=== PATIENT | male | born 1980 | race Caucasian/White ===

== ENCOUNTER 2018-02-10 16:02 | Emergency (ER) | payer OTHER ==
[~2018-02-10] VITALS: Ht 182.9 cm; Wt 86.2 kg
[2018-02-10] MEDS ORDERED: PREG75 PO ×2 (17:24→17:52)
[2018-02-10] MEDS ORDERED: OXYC1TAB11 (17:25)
[2018-02-10] MEDS ORDERED: CEPH500 PO (17:52)
[2018-02-10] MEDS ORDERED: Norco 5-325 Ta1 EACH PO (17:52)
== END 2018-02-10 18:00 | disposition home or self-care (01) ==
LOC: ER 16:02
DX: T81.4XXA Infection following a procedure, initial encounter (principal); Z76.0 Encounter for issue of repeat prescription; Z88.8 Allergy status to other drugs, medicaments and biological substances; Z79.899 Other long term (current) drug therapy
CPT/HCPCS: 99283

== ENCOUNTER 2018-09-25 14:33 | Emergency (ER) | payer OTHER ==
[~2018-09-25] VITALS: Ht 182.9 cm; Wt 86.2 kg
[~2018-09-25 14:33] MED LIST: CEPH500 PO; Norco 5-325 Ta1 EACH PO; OXYC1TAB11; PREG75 PO
[2018-09-25] MEDS ORDERED: PREG25 PO (15:50)
[2018-09-25] MEDS ORDERED: NAPR550 PO (15:55)
[2018-09-25] MEDS ORDERED: Voltaren100 GM TOP (15:55)
[2018-09-25] MEDS ORDERED: Ultram50 MG PO (15:55)
[2018-09-25] MEDS ORDERED: CEPH500 PO (17:44)
== END 2018-09-25 16:07 | disposition home or self-care (01) ==
LOC: ER 14:33
DX: L03.114 Cellulitis of left upper limb (principal); Z88.8 Allergy status to other drugs, medicaments and biological substances; Z79.899 Other long term (current) drug therapy
CPT/HCPCS: 76882

== ENCOUNTER 2019-08-22 19:10 | Inpatient (IN) | payer OTHER ==
[~2019-08-22] VITALS: Ht 182.9 cm; Wt 92.8 kg
[~2019-08-22 19:10] MED LIST changes: +NAPR550 PO; +PREG25 PO; +Ultram50 MG PO; +Voltaren100 GM TOP
[2019-08-22 19:51] LABS: BASOPHILS ABSOLUTE AUTO 0.03 K/mm3 (0.00-0.23); BASOPHILS PERCENT AUTO 0 % (0-2); EOSINOPHILS ABSOLUTE AUTO 0.01 K/mm3 (0.00-0.68); EOSINOPHILS PERCENT AUTO 0 % (0-6); Hemoglobin 15.5 g/dL (13.5-17.5); IMMATURE GRAN ABSOLUTE AUTO 0.09 K/mm3 (0.00-0.10); IMMATURE GRAN PERCENT AUTO 1 % (0-1); LYMPHOCYTES ABSOLUTE AUTO 1.11 K/mm3 (0.84-5.20); LYMPHOCYTES PERCENT AUTO 6 % (21-46); MONOCYTES ABSOLUTE AUTO 0.95 K/mm3 (0.16-1.47); MONOCYTES PERCENT AUTO 5 % (4-13); Mean Corpuscular HGB 28.3 pg (26.0-34.0); Mean Corpuscular HGB Conc 33.7 g/dL (31.5-36.5); Mean Corpuscular Volume 84 fL (80-100); Mean Platelet Volume 10.4 fL (9.1-12.4); NEUTROPHILS ABSOLUTE AUTO 17.67 K/mm3 (1.96-9.15); NEUTROPHILS PERCENT AUTO 89 % (41-73); Platelet Count 306 K/mm3 (150-400); RDW Coefficient Variation 12.4 % (11.7-14.2); RDW Standard Deviation 37.7 fL (35.1-46.3); Red Blood Cell Count 5.47 M/mm3 (4.30-5.90); White Blood Cell Count 19.86 K/mm3 (4.00-11.30)
[2019-08-22 20:16] LABS: Alanine Aminotransfer (ALT/SGP 26 U/L (12-78); Albumin/Globulin Ratio 1.2 (0.8-1.8); Alk Phos 83 U/L (50-136); Anion Gap 6 mmol/L (6-16); Aspartate Aminotrans (AST/SGOT 15 U/L (12-37); Blood Urea Nitrogen 18 mg/dL (8-24); Bun/Creatinine Ratio 24.7 (12.0-20.0); CO2, Blood 25 mmol/L (21-32); Calcium, Blood 9.1 mg/dL (8.5-10.1); Chloride, Blood 105 mmol/L (98-108); Creatinine, Blood 0.73 mg/dL (0.60-1.20); Globulin, Blood 3.3 g/dL (2.2-4.0); Glomerular Filtration Rate >60 (60-); Glucose, Blood 116 mg/dL (70-99); Potassium, Blood 3.9 mmol/L (3.5-5.5); Sodium, Blood 136 mmol/L (136-145); Total Protein, Blood 7.3 g/dL (6.4-8.2)
[2019-08-22 21:21] LABS: Source, Urine Clean Catch
[2019-08-22 21:23] LABS: Blood, Urine 5+ (Neg); Glucose Qualitative, Urine Neg (Neg); Ketones, Urine 1+ (Neg); Leukocyte Esterase, Urine 1+ (Neg); Nitrite, Urine Neg (Neg); Protein, Urine 2+ (Neg); Urobilinogen, Urine 1+ (Normal)
[2019-08-22 21:28] LABS: Appearance, Urine Hazy (Clear); Bilirubin, Urine 1+ (Neg); Color, Urine Yellow (P-Yellow)
[2019-08-22 21:30] LABS: Red Blood Cells, Urine 25-50 /hpf (0-2); Squamous Epithelial Cells Rare /hpf (Few); White Blood Cells, Urine 0-2 /hpf (0-5)
[2019-08-22 21:31] LABS: Bacteria Rare /hpf
--- NOTE | 2019-08-23 03:59 | NUR ---
SHIFT SUMMARY PT NEW ADMISSION THIS NOC SHIFT. [id number]. NPO. DISCOMFORT CONTROLLED WITH 1MG IV DILAUDID X2 SINCE ADMISSION TO FLOOR. DENIES NAUSEA/EMESIS. PT REPORTING LARGE AMOUNTS OF FLATUS WITH INCREASED ABD DISCOMFORT POST FLATUS. PT SBA UP IN ROOM. IVF PER ORDERS. CONSENT TO TALK TO VIA PHONE + UPDATED REGARDING PT'S CONDITION. REQUESTING ATTENDING PHYSICIAN TO CALL WITH UPDATE TODAY. PT ORIENTED TO ROOM + CALL LIGHT USE. PT NOW RESTING IN BED WITH CALL LIGHT IN REACH.
--- NOTE | 2019-08-23 18:16 | NUR ---
SUMMARY: PT ADMITTED FOR PERF DIVERTIC. NO ACUTE CHANGE. PT MEDICATED FOR PAIN PER EMAR. IV ABX GIVEN, PLAN IS FOR NO SURGERY AT THIS TIME. PT ABLE TO TOLERATE CLEAR LIQUIDS WITHOUT WORSENING OF SYMPTOMS, INSTRUCTED TO "GO SLOW". PT HAS BEEN INDEPENDENT WITH ADL'S. THIS RN DID SPEAK WITH PT AND EXPLAINED PT STATUS/ PLAN OF CARE, ALSO RELAYED TO DR. ZULETA THAT SHE WOULD LIKE HIM TO CALL HER CONCERNING HER AND THE PLAN WHILE HE IS ADMITTED. NO SAFETY CONCERNS AT THIS TIME, WILL MONITOR PT AND PASS REPORT TO NOC RN.
[2019-08-24 04:27] LABS: BASOPHILS ABSOLUTE AUTO 0.03 K/mm3 (0.00-0.23); BASOPHILS PERCENT AUTO 0 % (0-2); EOSINOPHILS PERCENT AUTO 2 % (0-6); Hematocrit 42.7 % (37.0-53.0); IMMATURE GRAN ABSOLUTE AUTO 0.03 K/mm3 (0.00-0.10); IMMATURE GRAN PERCENT AUTO 0 % (0-1); LYMPHOCYTES ABSOLUTE AUTO 1.75 K/mm3 (0.84-5.20); LYMPHOCYTES PERCENT AUTO 16 % (21-46); MONOCYTES ABSOLUTE AUTO 0.65 K/mm3 (0.16-1.47); MONOCYTES PERCENT AUTO 6 % (4-13); Mean Corpuscular HGB 28.1 pg (26.0-34.0); Mean Corpuscular HGB Conc 32.8 g/dL (31.5-36.5); Mean Corpuscular Volume 86 fL (80-100); Mean Platelet Volume 10.2 fL (9.1-12.4); NEUTROPHILS ABSOLUTE AUTO 8.17 K/mm3 (1.96-9.15); NEUTROPHILS PERCENT AUTO 75 % (41-73); Platelet Count 279 K/mm3 (150-400); RDW Coefficient Variation 12.8 % (11.7-14.2); RDW Standard Deviation 39.6 fL (35.1-46.3); Red Blood Cell Count 4.98 M/mm3 (4.30-5.90); White Blood Cell Count 10.83 K/mm3 (4.00-11.30)
[2019-08-24 04:48] LABS: Anion Gap 5 mmol/L (6-16); Blood Urea Nitrogen 12 mg/dL (8-24); Bun/Creatinine Ratio 15.9 (12.0-20.0); CO2, Blood 27 mmol/L (21-32); Calcium, Blood 8.3 mg/dL (8.5-10.1); Chloride, Blood 106 mmol/L (98-108); Creatinine, Blood 0.76 mg/dL (0.60-1.20); Glomerular Filtration Rate >60 (60-); Glucose, Blood 85 mg/dL (70-99); Potassium, Blood 3.6 mmol/L (3.5-5.5); Sodium, Blood 138 mmol/L (136-145)
--- NOTE | 2019-08-24 06:29 | NUR ---
SHIFT SUMMARY LYING SUPINE IN BED WITH EYES CLOSED. AAO X3, ADKINS, FOLLOWS ALL COMMANDS. PAIN MANAGED WITH IVP DILAUDED. INDEPENDENT IN THE ROOM. DENIES FURTHER NEEDS OR WANTS AT THIS TIME. SAFETY MEASURES IN PLACE. WILL GIVE HAND OFF TO ONCOMING SHIFT USING SBAR DURING BEDSIDE REPORT.
--- NOTE | 2019-08-24 15:30 | NUR ---
dr loo rounding on pt
--- NOTE | 2019-08-25 07:10 | NUR ---
pt sleeping in bed, bed in lowest position, call light within reach, bed rails up x 2. pt requested to be left to sleep for a couple hrs. recvd report from previous shift GELY Martinez.
--- NOTE | 2019-08-25 10:10 | NUR ---
pt requesting to leave hospital, is insistent he can treat himself at home if he is given a prescription for PO abx and PO analgesia. Pt is feeling anxious about not being with his family at this time. Pt agrees he will wait for Dr Olguin to be notified and to receive orders for discharge. provided pt with full liquid breakfast from pantry per his request. call/msg left for Dr Olguin, who is in procedure at this time. pt notified, and agrees to wait.
--- NOTE | 2019-08-25 11:48 | NUR ---
DR ZULETA ROUNDDIANA ON PT, DISCHARGE ORDERS IN, CALLED PRESCRIPTION TO [facility] AT 1145, PT AWAITING DISHARGE INSTRUCTIONS
[2019-08-25] MEDS ORDERED: AMOX875 PO (11:51)
[2019-08-25] MEDS ORDERED: HYDR1TAB94 PO (11:52)
--- NOTE | 2019-08-25 12:16 | NUR ---
PROVIDED DISCHARGE INSTRUCTIONS AND PRESCRIPTIONS, ABX SCRIPT CALLED TO [facility]. PERIPHERAL IV REMOVED WNL. PT STATES HIS UNDERSTANDING OF INSTRUCTIONS, DECLINES WHEELCHAIR ESCORT TO AWAITING VEHICLE, CARRYING HIS OWN BELONGINGS.
== END 2019-08-25 12:16 | disposition home or self-care (01) | DRG 392 ==
LOC: ER 19:10 → SURS 21:36
PROVIDERS: Nurse Practitioner; Surgery; ADMIT Surgery
DX: K57.20 Diverticulitis of large intestine with perforation and abscess without bleeding (principal); F17.200 Nicotine dependence, unspecified, uncomplicated
CPT/HCPCS: 36415; 74177; 80048; 80053; 81001; 83690; 85025; 87086; 96361; 96365-59; 96375; 99285-25; A9270-GY; J1170; J1885; J2405; J2543; J3010; J7030; J7120; Q9967

== ENCOUNTER 2019-12-13 17:50 | Emergency (ER) | payer OTHER ==
[~2019-12-13] VITALS: Ht 182.9 cm; Wt 88.5 kg
[~2019-12-13 17:50] MED LIST changes: +AMOX875 PO; +HYDR1TAB94 PO
== END 2019-12-13 18:42 | disposition home or self-care (01) ==
LOC: ER 17:50
DX: S05.01XA Injury of conjunctiva and corneal abrasion without foreign body, right eye, initial encounter (principal); F17.200 Nicotine dependence, unspecified, uncomplicated; X58.XXXA Exposure to other specified factors, initial encounter
CPT/HCPCS: 99282

== ENCOUNTER 2021-06-01 21:01 | Emergency (ER) | payer OTHER ==
[~2021-06-01] VITALS: Ht 177.8 cm; Wt 79.4 kg
== END 2021-06-01 23:35 | disposition home or self-care (01) ==
LOC: ER 21:01
DX: B34.9 Viral infection, unspecified (principal); R51.9 Headache, unspecified; Z20.822 Contact with and (suspected) exposure to COVID-19; F17.200 Nicotine dependence, unspecified, uncomplicated
CPT/HCPCS: 93005; 93010; 96374; 96375; 99283-25; A9270; J1200; J1885; J2765

== ENCOUNTER 2022-03-31 23:24 | Emergency (ER) | payer MEDICARE ==
[~2022-03-31] VITALS: Ht 180.3 cm; Wt 106.6 kg
[2022-04-01 00:07] LABS: BASOPHILS ABSOLUTE AUTO 0.05 K/mm3 (0.00-0.23); BASOPHILS PERCENT AUTO 1 % (0-2); EOSINOPHILS ABSOLUTE AUTO 0.33 K/mm3 (0.00-0.68); EOSINOPHILS PERCENT AUTO 3 % (0-6); Hematocrit 46.7 % (37.0-53.0); Hemoglobin 15.1 g/dL (13.5-17.5); IMMATURE GRAN ABSOLUTE AUTO 0.07 K/mm3 (0.00-0.10); IMMATURE GRAN PERCENT AUTO 1 % (0-1); LYMPHOCYTES ABSOLUTE AUTO 2.16 K/mm3 (0.84-5.20); LYMPHOCYTES PERCENT AUTO 21 % (21-46); MONOCYTES ABSOLUTE AUTO 1.07 K/mm3 (0.16-1.47); MONOCYTES PERCENT AUTO 11 % (4-13); Mean Corpuscular HGB 27.1 pg (26.0-34.0); Mean Corpuscular HGB Conc 32.3 g/dL (31.5-36.5); Mean Corpuscular Volume 84 fL (80-100); Mean Platelet Volume 10.2 fL (9.1-12.4); NEUTROPHILS ABSOLUTE AUTO 6.55 K/mm3 (1.96-9.15); NEUTROPHILS PERCENT AUTO 64 % (41-73); Platelet Count 319 K/mm3 (150-400); RDW Coefficient Variation 13.1 % (11.7-14.2); RDW Standard Deviation 39.8 fL (35.1-46.3); Red Blood Cell Count 5.58 M/mm3 (4.30-5.90); White Blood Cell Count 10.23 K/mm3 (4.00-11.30)
[2022-04-01 00:21] LABS: Albumin, Blood 3.1 g/dL (3.4-5.0); Albumin/Globulin Ratio 0.9 (0.8-1.8); Bilirubin, Total 0.3 mg/dL (0.1-1.0); Bun/Creatinine Ratio 11.9 (12.0-20.0); Calcium, Blood 8.4 mg/dL (8.5-10.1); Creatinine, Blood 1.59 mg/dL (0.60-1.20); Globulin, Blood 3.4 g/dL (2.2-4.0); Potassium, Blood 3.9 mmol/L (3.5-5.5); Total Protein, Blood 6.5 g/dL (6.4-8.2)
== END 2022-04-01 01:15 | disposition home or self-care (01) ==
LOC: ER 23:24
PROVIDERS: Emergency Medicine
DX: R07.2 Precordial pain (principal); R55 Syncope and collapse; N28.9 Disorder of kidney and ureter, unspecified; F17.200 Nicotine dependence, unspecified, uncomplicated
CPT/HCPCS: 36415; 71045; 80053; 84484; 85025; 85379; 93005; 93010

== ENCOUNTER 2023-02-11 12:12 | Emergency (ER) | payer MEDICARE, OTHER ==
[~2023-02-11] VITALS: Ht 182.9 cm; Wt 111.1 kg
[~2023-02-11 12:12] MED LIST changes: +AMOCLA875 PO; +LOSARTAN-HCTZ1 EACH PO; +METOPROLOL SUCC25 MG PO; +NEURONTIN300 MG PO; +ONDA4ODT MM; +SILDENAFIL CIT100 MG PO
[2023-02-11 13:19] VITALS: BP 139/85
[2023-02-11 14:25] LABS: BASOPHILS ABSOLUTE AUTO 0.05 K/mm3 (0.00-0.23); BASOPHILS PERCENT AUTO 1 % (0-2); EOSINOPHILS ABSOLUTE AUTO 0.16 K/mm3 (0.00-0.68); EOSINOPHILS PERCENT AUTO 2 % (0-6); Hematocrit 47.7 % (37.0-53.0); Hemoglobin 15.9 g/dL (13.5-17.5); IMMATURE GRAN ABSOLUTE AUTO 0.03 K/mm3 (0.00-0.10); IMMATURE GRAN PERCENT AUTO 0 % (0-1); LYMPHOCYTES ABSOLUTE AUTO 0.42 K/mm3 (0.84-5.20); LYMPHOCYTES PERCENT AUTO 5 % (21-46); MONOCYTES ABSOLUTE AUTO 1.14 K/mm3 (0.16-1.47); MONOCYTES PERCENT AUTO 15 % (4-13); Mean Corpuscular HGB 27.5 pg (26.0-34.0); Mean Corpuscular HGB Conc 33.3 g/dL (31.5-36.5); Mean Corpuscular Volume 83 fL (80-100); Mean Platelet Volume 10.7 fL (9.1-12.4); NEUTROPHILS ABSOLUTE AUTO 5.92 K/mm3 (1.96-9.15); NEUTROPHILS PERCENT AUTO 77 % (41-73); Platelet Count 256 K/mm3 (150-400); RDW Coefficient Variation 12.9 % (11.7-14.2); RDW Standard Deviation 38.3 fL (35.1-46.3); Red Blood Cell Count 5.78 M/mm3 (4.30-5.90); White Blood Cell Count 7.72 K/mm3 (4.00-11.30)
[2023-02-11 14:37] LABS: Albumin, Blood 3.5 g/dL (3.4-5.0); Albumin/Globulin Ratio 0.9 (0.8-1.8); Bilirubin, Total 0.5 mg/dL (0.1-1.0); Bun/Creatinine Ratio 12.5 (12.0-20.0); Calcium, Blood 8.9 mg/dL (8.5-10.1); Creatinine, Blood 0.88 mg/dL (0.60-1.20); Potassium, Blood 4.2 mmol/L (3.5-5.5); Total Protein, Blood 7.5 g/dL (6.4-8.2)
[2023-02-11 15:58] LABS: Source, Urine Clean Catch
[2023-02-11 16:12] LABS: Appearance, Urine Hazy (Clear); Bilirubin, Urine Neg (Neg); Blood, Urine 5+ (Neg); Color, Urine Yellow (P-Yellow); Glucose Qualitative, Urine 2+ (Neg); Ketones, Urine Neg (Neg); Leukocyte Esterase, Urine Neg (Neg); Nitrite, Urine Neg (Neg); Protein, Urine 2+ (Neg); Urobilinogen, Urine 1+ (Normal)
[2023-02-11 16:19] LABS: Amorphous Light (0-Heavy); Bacteria Mod /hpf
[2023-02-11 16:20] LABS: Squamous Epithelial Cells Not Seen /hpf (Few)
[2023-02-11 16:21] LABS: Red Blood Cells, Urine 25-50 /hpf (0-2)
[2023-02-11] MEDS ORDERED: CEFP200 PO (17:50)
[2023-02-11] MEDS ORDERED: Norco 7.5-3251 EACH PO (17:50)
== END 2023-02-11 16:18 | disposition home or self-care (01) ==
LOC: ER 12:12
PROVIDERS: Physician Assistant
DX: N39.0 Urinary tract infection, site not specified (principal); F17.210 Nicotine dependence, cigarettes, uncomplicated; Z79.899 Other long term (current) drug therapy; I10 Essential (primary) hypertension
CPT/HCPCS: 74177; 80053; 81001; 84484; 85025; 87086; 93005; 93010; 96374-59; 96375; 99284-25; A9270; J1885; J2405; Q9967

== ENCOUNTER 2023-02-12 07:06 | Emergency (ER) | payer MEDICARE, OTHER ==
[~2023-02-12] VITALS: Ht 182.9 cm; Wt 111.1 kg
[~2023-02-12 07:06] MED LIST changes: +CEFP200 PO; +Norco 7.5-3251 EACH PO
[2023-02-12 07:10] VITALS: BP 147/99
== END 2023-02-12 07:33 | disposition home or self-care (01) ==
LOC: ER 07:06
DX: U07.1 COVID-19 (principal); N39.0 Urinary tract infection, site not specified; I10 Essential (primary) hypertension; F17.210 Nicotine dependence, cigarettes, uncomplicated; Z79.899 Other long term (current) drug therapy
CPT/HCPCS: 99284

== ENCOUNTER 2023-03-12 21:11 | Emergency (ER) | payer MEDICARE, OTHER ==
[~2023-03-12] VITALS: Ht 182.9 cm; Wt 111.1 kg
[2023-03-12] MEDS ORDERED: FUROSEMIDE20 MG PO (21:22)
[2023-03-12] MEDS ORDERED: CARVEDILOL12.5 MG PO (21:22)
[2023-03-12 21:41] LABS: BASOPHILS ABSOLUTE AUTO 0.06 K/mm3 (0.00-0.23); BASOPHILS PERCENT AUTO 1 % (0-2); EOSINOPHILS ABSOLUTE AUTO 0.35 K/mm3 (0.00-0.68); EOSINOPHILS PERCENT AUTO 3 % (0-6); Hematocrit 45.7 % (37.0-53.0); Hemoglobin 15.6 g/dL (13.5-17.5); IMMATURE GRAN ABSOLUTE AUTO 0.04 K/mm3 (0.00-0.10); IMMATURE GRAN PERCENT AUTO 0 % (0-1); LYMPHOCYTES ABSOLUTE AUTO 1.52 K/mm3 (0.84-5.20); LYMPHOCYTES PERCENT AUTO 13 % (21-46); MONOCYTES ABSOLUTE AUTO 1.18 K/mm3 (0.16-1.47); MONOCYTES PERCENT AUTO 10 % (4-13); Mean Corpuscular HGB 27.8 pg (26.0-34.0); Mean Corpuscular HGB Conc 34.1 g/dL (31.5-36.5); Mean Corpuscular Volume 82 fL (80-100); Mean Platelet Volume 10.7 fL (9.1-12.4); NEUTROPHILS ABSOLUTE AUTO 8.34 K/mm3 (1.96-9.15); NEUTROPHILS PERCENT AUTO 73 % (41-73); Platelet Count 255 K/mm3 (150-400); RDW Coefficient Variation 12.8 % (11.7-14.2); RDW Standard Deviation 37.6 fL (35.1-46.3); Red Blood Cell Count 5.61 M/mm3 (4.30-5.90); White Blood Cell Count 11.49 K/mm3 (4.00-11.30)
[2023-03-12 21:59] LABS: Albumin, Blood 3.6 g/dL (3.4-5.0); Bilirubin, Total 0.4 mg/dL (0.1-1.0); Bun/Creatinine Ratio 15.5 (12.0-20.0); Calcium, Blood 8.9 mg/dL (8.5-10.1); Creatinine, Blood 1.03 mg/dL (0.60-1.20); Globulin, Blood 3.7 g/dL (2.2-4.0); Potassium, Blood 3.5 mmol/L (3.5-5.5); Total Protein, Blood 7.3 g/dL (6.4-8.2)
[2023-03-13 00:28] VITALS: BP 145/95
== END 2023-03-13 00:28 | disposition home or self-care (01) ==
LOC: ER 21:11
PROVIDERS: Student in an Organized Health Care Education/Training Program
DX: R07.89 Other chest pain (principal); Z79.899 Other long term (current) drug therapy; I10 Essential (primary) hypertension
CPT/HCPCS: 71046; 80053; 83880; 84484; 85025; 93005; 93010; 99285-25

== ENCOUNTER 2023-09-04 18:32 | Emergency (ER) | payer MEDICARE, OTHER ==
[~2023-09-04] VITALS: Ht 182.9 cm; Wt 113.4 kg
[~2023-09-04 18:32] MED LIST changes: +CARVEDILOL12.5 MG PO; +ERYT.5TO LEFTEYE; +FUROSEMIDE20 MG PO; +OCUFLOX510 LEFTEYE
[2023-09-04 18:44] VITALS: BP 180/112
[2023-09-04] MEDS ORDERED: VALA500 PO ×2 (19:19→20:15)
[2023-09-04] MEDS ORDERED: LOSARTAN-HCTZ1 EAC6 PO (19:20)
[2023-09-04] MEDS ORDERED: Proparacaine 0.5% Opth Soln 15 ML BTL BOTHEYES ONE (19:45)
[2023-09-04] MEDS ORDERED: Fluorescein Sod 1MG Opth Strips BOTHEYES ONE (19:45)
[2023-09-04] MEDS ORDERED: ZIRGAN5 GM LEFTEYE ×2 (20:07→20:08)
== END 2023-09-04 20:23 | disposition home or self-care (01) ==
LOC: ER 18:32
DX: B00.52 Herpesviral keratitis (principal); H30.92 Unspecified chorioretinal inflammation, left eye; I10 Essential (primary) hypertension
CPT/HCPCS: 99283; A9270; A9270-GY

== ENCOUNTER 2023-11-07 22:32 | Emergency (ER) | payer MEDICARE, OTHER ==
[~2023-11-07] VITALS: Ht 182.9 cm; Wt 79.4 kg
[~2023-11-07 22:32] MED LIST changes: +LOSARTAN-HCTZ1 EAC6 PO; +VALA500 PO; +ZIRGAN5 GM LEFTEYE
[2023-11-07 23:14] LABS: Albumin, Blood 3.5 g/dL (3.4-5.0); Albumin/Globulin Ratio 0.9 (0.8-1.8); Bilirubin, Total 0.4 mg/dL (0.1-1.0); Bun/Creatinine Ratio 18.5 (12.0-20.0); Calcium, Blood 8.9 mg/dL (8.5-10.1); Creatinine, Blood 1.08 mg/dL (0.60-1.20); Globulin, Blood 3.8 g/dL (2.2-4.0); Potassium, Blood 3.4 mmol/L (3.5-5.5); Total Protein, Blood 7.3 g/dL (6.4-8.2)
[2023-11-07 23:16] LABS: BASOPHILS ABSOLUTE AUTO 0.06 K/mm3 (0.00-0.23); BASOPHILS PERCENT AUTO 1 % (0-2); EOSINOPHILS ABSOLUTE AUTO 0.26 K/mm3 (0.00-0.68); EOSINOPHILS PERCENT AUTO 3 % (0-6); Hematocrit 44.3 % (37.0-53.0); Hemoglobin 15.3 g/dL (13.5-17.5); IMMATURE GRAN ABSOLUTE AUTO 0.02 K/mm3 (0.00-0.10); IMMATURE GRAN PERCENT AUTO 0 % (0-1); LYMPHOCYTES ABSOLUTE AUTO 1.75 K/mm3 (0.84-5.20); LYMPHOCYTES PERCENT AUTO 20 % (21-46); MONOCYTES ABSOLUTE AUTO 0.78 K/mm3 (0.16-1.47); MONOCYTES PERCENT AUTO 9 % (4-13); Mean Corpuscular HGB 28.3 pg (26.0-34.0); Mean Corpuscular HGB Conc 34.5 g/dL (31.5-36.5); Mean Corpuscular Volume 82 fL (80-100); Mean Platelet Volume 10.4 fL (9.1-12.4); NEUTROPHILS ABSOLUTE AUTO 5.74 K/mm3 (1.96-9.15); NEUTROPHILS PERCENT AUTO 67 % (41-73); Platelet Count 295 K/mm3 (150-400); RDW Coefficient Variation 13.3 % (11.7-14.2); RDW Standard Deviation 39.6 fL (35.1-46.3); White Blood Cell Count 8.61 K/mm3 (4.00-11.30)
[2023-11-07] MEDS ORDERED: LOSARTAN-HCTZ1 EAC5 PO (23:21)
[2023-11-08 03:00] VITALS: BP 107/71
== END 2023-11-08 03:30 | disposition home or self-care (01) ==
LOC: ER 22:32
PROVIDERS: Student in an Organized Health Care Education/Training Program
DX: R07.2 Precordial pain (principal); I10 Essential (primary) hypertension; Z79.899 Other long term (current) drug therapy
CPT/HCPCS: 71045; 80053; 84484; 85025; 93005; 93010; 99285-25

== ENCOUNTER 2024-03-27 21:23 | Emergency (ER) | payer MEDICARE, OTHER ==
[~2024-03-27] VITALS: Ht 182.9 cm; Wt 111.1 kg
[~2024-03-27 21:23] MED LIST changes: +LOSARTAN-HCTZ1 EAC5 PO
[2024-03-27 21:28] VITALS: BP 157/96
[2024-03-27 21:54] LABS: BASOPHILS ABSOLUTE AUTO 0.06 K/mm3 (0.00-0.23); BASOPHILS PERCENT AUTO 1 % (0-2); EOSINOPHILS ABSOLUTE AUTO 0.22 K/mm3 (0.00-0.68); EOSINOPHILS PERCENT AUTO 3 % (0-6); Hematocrit 50.9 % (37.0-53.0); Hemoglobin 17.2 g/dL (13.5-17.5); IMMATURE GRAN ABSOLUTE AUTO 0.03 K/mm3 (0.00-0.10); IMMATURE GRAN PERCENT AUTO 0 % (0-1); LYMPHOCYTES ABSOLUTE AUTO 1.94 K/mm3 (0.84-5.20); LYMPHOCYTES PERCENT AUTO 27 % (21-46); MONOCYTES ABSOLUTE AUTO 0.63 K/mm3 (0.16-1.47); MONOCYTES PERCENT AUTO 9 % (4-13); Mean Corpuscular HGB 27.3 pg (26.0-34.0); Mean Corpuscular HGB Conc 33.8 g/dL (31.5-36.5); Mean Corpuscular Volume 81 fL (80-100); NEUTROPHILS ABSOLUTE AUTO 4.37 K/mm3 (1.96-9.15); NEUTROPHILS PERCENT AUTO 60 % (41-73); Platelet Count 323 K/mm3 (150-400); RDW Coefficient Variation 12.8 % (11.7-14.2); RDW Standard Deviation 37.4 fL (35.1-46.3); Red Blood Cell Count 6.29 M/mm3 (4.30-5.90); White Blood Cell Count 7.25 K/mm3 (4.00-11.30)
[2024-03-27 22:14] LABS: Albumin, Blood 3.6 g/dL (3.4-5.0); Albumin/Globulin Ratio 0.9 (0.8-1.8); Bilirubin, Total 0.5 mg/dL (0.1-1.0); Bun/Creatinine Ratio 15.9 (12.0-20.0); Calcium, Blood 8.8 mg/dL (8.5-10.1); Creatinine, Blood 1.07 mg/dL (0.60-1.20); Potassium, Blood 3.5 mmol/L (3.5-5.5); Total Protein, Blood 7.6 g/dL (6.4-8.2)
== END 2024-03-27 23:55 | disposition left against medical advice (07) ==
LOC: ER 21:23
PROVIDERS: Student in an Organized Health Care Education/Training Program
DX: R07.9 Chest pain, unspecified (principal); Z53.21 Procedure and treatment not carried out due to patient leaving prior to being seen by health care provider
CPT/HCPCS: 71046; 80053; 83690; 84484; 85025